=== PATIENT | female | born 1990 | race African-American/Black ===

== ENCOUNTER 2021-07-28 12:04 | Emergency (ER) | payer MEDICAID ==
[~2021-07-28] VITALS: Ht 175.3 cm; Wt 72.6 kg
[2021-07-28 12:07] VITALS: BP 132/80
[2021-07-28] MEDS ORDERED: ONDANSETRON HCL 4 MG/2 ML VIAL IV ONE (12:15)
[2021-07-28] MEDS ORDERED: SODIUM CHLORIDE 0.9% 1,000 ML IV ONE (12:15)
[2021-07-28 13:40] LABS: Basophils # (auto) 0.1 10 ^3/uL (0-0.2); Basophils % (auto) 0.4 % (0.0-2.0); Eosinophils # (auto) 0.2 10 ^3/uL (0-0.8); Eosinophils % (auto) 1.2 % (0.0-7.0); Hematocrit 48.2 % (36.0-46.0); Hemoglobin 16.1 g/dL (12.2-16.2); Lymphocytes # (auto) 3.5 10 ^3/uL (0.4-5.4); Mean Corpuscular Hemoglobin 31.1 pg (28.0-32.0); Mean Corpuscular Hgb Conc. 33.4 g/dL (32.0-36.0); Monocytes # (auto) 1.6 10 ^3/uL (0-1.3); Neutrophils # (auto) 9.2 10 ^3/uL (1.6-8.6); Neutrophils % (auto) 63.4 % (37.0-80.0); Nucleated Red Blood Cells % 0.1 %; Red Blood Cells 5.18 10^6/uL (4.0-5.20); Red Cell Distribution Width 12.9 % (11.8-14.3); White Blood Cell 14.5 10^3/uL (4.4-10.8)
[2021-07-28 13:53] LABS: Albumin 4.3 g/dL (3.4-5.0); Calcium 9.8 mg/dL (8.5-10.1)
[2021-07-28 13:56] LABS: Bilirubin, Total 1.4 mg/dL (0.2-1.0); Total Protein 8.2 g/dL (6.4-8.2)
[2021-07-28 14:11] LABS: Potassium 2.8 mmol/L (3.5-5.1)
[2021-07-28] MEDS ORDERED: POTASSIUM CHL 20 Meq TABLET PO ONE (14:30)
[2021-07-28 17:35] LABS: Urine Bacteria FEW /hpf (None Seen); Urine Blood Negative /uL (Negative); Urine Mucus MODERATE (None Seen); Urine Specific Gravity 1.034 (1.001-1.035); Urine WBC 31 /hpf (0 - 5)
== END 2021-07-28 22:21 | disposition left against medical advice (07) ==
LOC: ER 12:04 → EDBD 12:04 → ER 22:21
DX: O23.41 Unspecified infection of urinary tract in pregnancy, first trimester (principal); N39.0 Urinary tract infection, site not specified; E87.6 Hypokalemia; Z90.49 Acquired absence of other specified parts of digestive tract; Z3A.01 Less than 8 weeks gestation of pregnancy
CPT/HCPCS: 36415; 76801; 76817; 80053; 81001; 84702; 85025